=== PATIENT | female | born 1940 | race Caucasian/White ===

== ENCOUNTER 2018-04-02 08:27 | Inpatient (IN) | payer MEDICARE ==
[~2018-04-02] VITALS: Ht 157.4 cm; Wt 73.7 kg
[2018-04-02] VITALS (7 sets, daily range): BP systolic 110–187; BP diastolic 59–94
--- NOTE | ~2018-04-02 | EKG ---
[place], [place] ELECTROCARDIOGRAM REPORT NAME: SUNDAY ZAMORA UNIT #: [id number] ROOM: 403 DOCTOR: ABEL DRAFT REPORT BIRTHDATE: [birth year] [facility] Test Date: 2018-04-02 Test Time: 09:09:46 Pat Name: SUNDAY ZAMORA Department: Room: 403 Gender: F Biomedical Technician: : 1940 Requested By: MELLY SILVER Order Number: [id number] Reading MD: Nick He MD Measurements Intervals [place] Rate: 85 P: 35 OR: 151 QRS: -49 QRSD: 90 T: 44 QT: 367 QTc: 437 Interpretive Statements Sinus rhythm Left anterior fascicular block Abnormal R-wave progression, late transition No previous ECG available for comparison Electronically Signed On 04-03-2018 12:12:07 PST by Nick He MD CM:EKGRPT:ELECTROCARDIOGRAM REPORT 1212 MELLY ROMAN DRAFT REPORT MELLY SILVER M.D.
[~2018-04-02 08:27] MED LIST: CALCIUM 500500 M2 PO; CO Q1030 MG PO; COLACE100 MG PO; DIPHENHYDRAMINE25 MG PO; FISH OIL1000 MG PO; LEVOTHYROXIN0.112 MG; LISINOPRIL10 MG PO; LOVENOX30 MG/0.3 SC; METFORMIN500 MG; METOPROLOL SUC100 M2; MULTIPLE VITAMI1 CAP PO; PERCOCET 325 MG1 TA5 PO; PRAVACHOL20 MG; SPIRONOLACTONE25 MG PO; Senokot1 TAB PO; ZITHROMAX Z PA250 MG PO
[2018-04-02 09:21] LABS: BASO # 0.1 10*3/uL (0.0-0.1); BASO % 0.4 % (0.0-1.0); EOS # 0.1 10*3/uL (0.0-0.4); EOS % 0.7 % (1.0-4.0); HEMATOCRIT 39.8 % (37.0-47.0); HEMOGLOBIN 13.4 g/dl (12.0-16.0); LYMPH # 2.8 10*3/uL (1.3-4.4); LYMPH % 20.7 % (27.0-41.0); MEAN CELL VOLUME 92.6 fl (81.0-99.0); MEAN CORPUSCULAR HGB 31.2 pg (27.0-31.0); MEAN CORPUSCULAR HGB CONC 33.7 g/dl (33.0-37.0); MEAN PLATELET VOLUME 9.5 fl (9.6-12.3); MONO # 0.9 10*3/uL (0.1-1.0); MONO % 6.4 % (3.0-9.0); NEUT # 9.6 10*3/uL (2.3-7.9); NEUT % 71.4 % (47.0-73.0); PLATELET COUNT AUTOMATED 318 10*3/uL (130-400); RED CELL DISTRI WIDTH 13.2 % (0-14.5); WHITE BLOOD COUNT 13.5 10*3/uL (4.8-10.8)
[2018-04-02 09:26] LABS: ALBUMIN 3.6 gm/dl (3.1-4.5); ALKALINE PHOSPHATASE 69 U/L (45-117); BUN 18 mg/dl (7-24); CHLORIDE 97 mmol/L (98-107); CREATININE 0.89 mg/dL (0.55-1.02); POTASSIUM 4.7 mmol/L (3.5-5.1); SGOT/AST 18 IU/L (3-35); SGPT/ALT 28 U/L (12-78); SODIUM 132 mmol/L (136-145); TOTAL PROTEIN 7.9 gm/dL (6.4-8.2)
[2018-04-02 09:28] LABS: ACT PARTIAL THROMBO TIME 23.6 SECONDS (20.8-31.5); INTERNATIONAL NORM RATIO 0.9 (2.0-3.5)
[2018-04-02 09:30] LABS: TROPONIN I < 0.015 ng/ml (<0.045)
[2018-04-02] MEDS ORDERED: ASPIRIN81 M1 PO (11:17)
[2018-04-02] MEDS ORDERED: B COMPLEX1 EACH PO (11:18)
[2018-04-03] VITALS: BP 114/55
[2018-04-03 06:43] LABS: BUN 23 mg/dl (7-24); CHLORIDE 101 mmol/L (98-107); POTASSIUM 4.7 mmol/L (3.5-5.1); SODIUM 134 mmol/L (136-145)
[2018-04-03 06:45] LABS: BASO % 0.1 % (0.0-1.0); HEMATOCRIT 33.8 % (37.0-47.0); HEMOGLOBIN 11.4 g/dl (12.0-16.0); LYMPH # 2.9 10*3/uL (1.3-4.4); LYMPH % 24.7 % (27.0-41.0); MEAN CELL VOLUME 93.6 fl (81.0-99.0); MEAN CORPUSCULAR HGB 31.6 pg (27.0-31.0); MEAN CORPUSCULAR HGB CONC 33.7 g/dl (33.0-37.0); MEAN PLATELET VOLUME 9.8 fl (9.6-12.3); MONO # 0.7 10*3/uL (0.1-1.0); MONO % 5.9 % (3.0-9.0); NEUT % 67.8 % (47.0-73.0); PLATELET COUNT AUTOMATED 294 10*3/uL (130-400); RED BLOOD COUNT 3.61 10*6/uL (4.10-5.10); RED CELL DISTRI WIDTH 13.5 % (0-14.5); WHITE BLOOD COUNT 11.8 10*3/uL (4.8-10.8)
[2018-04-03 06:56] LABS: CHOLESTEROL 139 mg/dL (<200); CREATININE 0.87 mg/dL (0.55-1.02); HDL CHOLESTEROL 42 mg/dl (40-60); LDL CHOLESTEROL 83 mg/dL (9-159); PHOSPHOROUS 3.2 mg/dL (2.5-4.9); THYROID STIM HORMONE (HS) 0.753 uIU/ml (0.358-4.75); TRIGLYCERIDES 72 mg/dl (<150); VLDL CHOLESTEROL 14 mg/dL (6-40)
[2018-04-03 07:33] VITALS: BP 132/80
[2018-04-03 07:38] LABS: VITAMIN D, 25-HYDROXY 29.8 ng/mL (30-100)
[2018-04-03 12:00] VITALS: BP 122/55
[2018-04-03 16:00] VITALS: BP 137/82
[2018-04-03 20:00] VITALS: BP 145/72
[2018-04-04] VITALS: BP 119/59
[2018-04-04 06:23] LABS: HEMATOCRIT 35.9 % (37.0-47.0); MEAN CELL VOLUME 94.2 fl (81.0-99.0); MEAN CORPUSCULAR HGB 31.5 pg (27.0-31.0); MEAN CORPUSCULAR HGB CONC 33.4 g/dl (33.0-37.0); PLATELET COUNT AUTOMATED 317 10*3/uL (130-400); RED BLOOD COUNT 3.81 10*6/uL (4.10-5.10); RED CELL DISTRI WIDTH 13.6 % (0-14.5); WHITE BLOOD COUNT 16.1 10*3/uL (4.8-10.8)
[2018-04-04 06:54] LABS: BUN 28 mg/dl (7-24); CHLORIDE 101 mmol/L (98-107); CREATININE 0.84 mg/dL (0.55-1.02); POTASSIUM 4.5 mmol/L (3.5-5.1); SODIUM 134 mmol/L (136-145)
[2018-04-04 07:14] LABS: PLATELET SUFFICIENCY NORMAL (NORMAL); TOTAL CELLS COUNTED 100 #CELLS
[2018-04-04 08:00] VITALS: BP 134/58; BP 141/73
[2018-04-04 12:00] VITALS: BP 137/73
[2018-04-04 16:00] VITALS: BP 152/73
[2018-04-04 20:00] VITALS: BP 119/86
[2018-04-05] VITALS: BP 158/77
[2018-04-05 06:59] LABS: HEMOGLOBIN 12.4 g/dl (12.0-16.0); MEAN CELL VOLUME 92.8 fl (81.0-99.0); MEAN CORPUSCULAR HGB CONC 34.4 g/dl (33.0-37.0); MEAN PLATELET VOLUME 9.5 fl (9.6-12.3); PLATELET COUNT AUTOMATED 345 10*3/uL (130-400); RED BLOOD COUNT 3.88 10*6/uL (4.10-5.10); RED CELL DISTRI WIDTH 13.5 % (0-14.5); WHITE BLOOD COUNT 16.1 10*3/uL (4.8-10.8)
[2018-04-05 07:23] LABS: CHLORIDE 100 mmol/L (98-107); POTASSIUM 4.4 mmol/L (3.5-5.1); SODIUM 134 mmol/L (136-145)
[2018-04-05 07:28] LABS: BUN 27 mg/dl (7-24); CREATININE 0.82 mg/dL (0.55-1.02)
[2018-04-05 08:00] VITALS: BP 169/66
[2018-04-05 08:14] LABS: ATYPICAL LYMPHS 1 % (0-0); PLATELET SUFFICIENCY NORMAL (NORMAL); TOTAL CELLS COUNTED 100 #CELLS
[2018-04-05 12:00] VITALS: BP 133/60
[2018-04-05 16:00] VITALS: BP 122/57
[2018-04-05 20:00] VITALS: BP 131/70
[2018-04-06] VITALS: BP 130/63
[2018-04-06 07:27] VITALS: BP 142/80
[2018-04-06] MEDS ORDERED: PREDNISONE10 MG PO (09:42)
[2018-04-06] MEDS ORDERED: LACTINEX 0.2 MG1 TAB PO (09:42)
[2018-04-06] MEDS ORDERED: ZITHROMAX250 MG PO (09:42)
[2018-04-06] MEDS ORDERED: MUCINEX ER600 MG PO (09:42)
[2018-04-07 22:10] LABS: ADENOVIRUS Negative (Negative); INFLUENZA A Negative (Negative); INFLUENZA B Negative (Negative); METAPNEUMOVIRUS Negative (Negative); PARAINFLUENZA 1 Negative (Negative); PARAINFLUENZA 2 Negative (Negative); PARAINFLUENZA 3 Negative (Negative); RHINOVIRUS Negative (Negative); RSV A Negative (Negative); RSV B Positive (Negative)
== END 2018-04-06 10:48 | disposition home health service (06) | DRG 871 ==
LOC: ED → EDHOLD 10:22 → 4E 10:22
PROVIDERS: Emergency Medicine; Internal Medicine; ADMIT Internal Medicine
DX: A41.9 Sepsis, unspecified organism (principal); J18.9 Pneumonia, unspecified organism; J44.1 Chronic obstructive pulmonary disease with (acute) exacerbation; J44.0 Chronic obstructive pulmonary disease with (acute) lower respiratory infection; E87.1 Hypo-osmolality and hyponatremia; E89.0 Postprocedural hypothyroidism; Z96.643 Presence of artificial hip joint, bilateral; E11.65 Type 2 diabetes mellitus with hyperglycemia; E87.8 Other disorders of electrolyte and fluid balance, not elsewhere classified; R09.02 Hypoxemia; I44.4 Left anterior fascicular block; E78.5 Hyperlipidemia, unspecified; I10 Essential (primary) hypertension; F17.210 Nicotine dependence, cigarettes, uncomplicated; R00.1 Bradycardia, unspecified; Z71.6 Tobacco abuse counseling; Z82.49 Family history of ischemic heart disease and other diseases of the circulatory system; Z82.3 Family history of stroke; Z79.82 Long term (current) use of aspirin; Z79.899 Other long term (current) drug therapy

== ENCOUNTER → 2020-05-11 | Outpatient (CLI) | payer MEDICARE ==
[~2020-05-11] MED LIST changes: +ASPIRIN81 M1 PO; +B COMPLEX1 EACH PO; +LACTINEX 0.2 MG1 TAB PO; +MUCINEX ER600 MG PO; +PREDNISONE10 MG PO; +ZITHROMAX250 MG PO
== END | disposition home or self-care (01) ==
LOC: CT 10:58
PROVIDERS: ATTEND Internal Medicine
DX: E21.4 Other specified disorders of parathyroid gland (principal); E03.9 Hypothyroidism, unspecified; R60.0 Localized edema

== ENCOUNTER → 2021-11-30 | Outpatient (CLI) | payer MEDICARE ==
[2021-11-30 17:21] LABS: CREATININE 1.36 mg/dL (0.55-1.02); POTASSIUM 5.6 mmol/L (3.5-5.1)
== END | disposition home or self-care (01) ==
LOC: LAB 12:35
PROVIDERS: ATTEND Internal Medicine
DX: E87.5 Hyperkalemia (principal)

== ENCOUNTER → 2021-12-17 | Outpatient (CLI) | payer MEDICARE ==
[2021-12-17 15:08] LABS: BASO # 0.1 10*3/uL (0.0-0.1); BASO % 0.7 % (0.0-1.0); EOS # 0.3 10*3/uL (0.0-0.4); HEMATOCRIT 41.5 % (37.0-47.0); LYMPH # 2.2 10*3/uL (1.3-4.4); LYMPH % 25.1 % (27.0-41.0); MEAN CELL VOLUME 94.1 fl (81.0-99.0); MEAN CORPUSCULAR HGB 31.5 pg (27.0-31.0); MEAN CORPUSCULAR HGB CONC 33.5 g/dl (33.0-37.0); MEAN PLATELET VOLUME 9.8 fl (9.6-12.3); MONO # 0.5 10*3/uL (0.1-1.0); NEUT # 5.9 10*3/uL (2.3-7.9); PLATELET COUNT AUTOMATED 272 10*3/uL (130-400); RED BLOOD COUNT 4.41 10*6/uL (4.10-5.10); RED CELL DISTRI WIDTH 12.2 % (0-14.5); WHITE BLOOD COUNT 8.9 10*3/uL (4.8-10.8)
[2021-12-17 15:29] LABS: BUN 19 mg/dl (7-24); CHLORIDE 104 mmol/L (98-107); CREATININE 1.03 mg/dL (0.55-1.02); POTASSIUM 4.7 mmol/L (3.5-5.1); SODIUM 137 mmol/L (136-145)
== END | disposition home or self-care (01) ==
LOC: LAB 14:42
PROVIDERS: ATTEND Internal Medicine
DX: E87.5 Hyperkalemia (principal); N28.9 Disorder of kidney and ureter, unspecified